=== PATIENT | male | born 1995 | race Caucasian/White ===

== ENCOUNTER 2016-06-27 09:47 | Outpatient (CLI) | payer MEDICAID | END 2016-06-27 09:48 | disposition home or self-care (01) | DX: L70.0 Acne vulgaris (principal); Z79.899 Other long term (current) drug therapy ==

== ENCOUNTER 2016-07-12 11:13 | Outpatient (CLI) | payer MEDICAID | END 2016-07-12 11:14 | disposition home or self-care (01) | DX: R79.9 Abnormal finding of blood chemistry, unspecified (principal); Z79.899 Other long term (current) drug therapy ==

== ENCOUNTER 2016-07-24 13:31 | Outpatient (CLI) | payer MEDICAID | END 2016-07-24 13:32 | disposition home or self-care (01) | DX: L70.0 Acne vulgaris (principal); Z79.899 Other long term (current) drug therapy ==

== ENCOUNTER 2016-08-19 13:52 | Outpatient (CLI) | payer MEDICAID | END 2016-08-19 13:53 | disposition home or self-care (01) | DX: L70.0 Acne vulgaris (principal); Z79.899 Other long term (current) drug therapy ==

== ENCOUNTER 2016-09-04 12:00 | Outpatient (CLI) | payer MEDICAID | END 2016-09-04 12:01 | disposition home or self-care (01) | DX: L70.0 Acne vulgaris (principal); Z79.899 Other long term (current) drug therapy ==

== ENCOUNTER 2016-11-14 09:13 | Outpatient (CLI) | payer MEDICAID ==
[2016-11-14 10:13] LABS: BASOPHILS % (AUTO) 0.2 %; EOSINOPHILS # (AUTO) 0.1 10^3/uL (0.0-0.7); EOSINOPHILS % (AUTO) 1.9 %; HCT - HEMATOCRIT 40.7 % (42.0-52.0); HGB - HEMOGLOBIN 14.2 g/dL (14.0-18.0); LYMPHOCYTES % (AUTO) 31.8 %; MEAN CORPUSCULAR HEMOGLOBIN 28.7 pg (27.0-31.0); MEAN CORPUSCULAR HGB CONC 34.8 g/dL (32.0-36.0); MEAN CORPUSCULAR VOLUME 82.5 fL (80.0-94.0); MEAN PLATELET VOLUME 8.6 fL (7.4-11.4); MONOCYTES # (AUTO) 0.6 10^3/uL (0.0-1.0); MONOCYTES % (AUTO) 9.5 %; NEUTROPHILS # (AUTO) 3.5 10^3/uL (1.5-6.6); NEUTROPHILS % (AUTO) 56.6 %; RED BLOOD COUNT 4.94 10^6/uL (4.70-6.10); RED CELL DISTRIBUTION WIDTH 16.8 % (12.0-15.0); UNCORRECTED WHITE BLOOD COUNT 6.2 x10^3/uL; WHITE BLOOD COUNT 6.2 x10^3/uL (4.8-10.8)
[2016-11-14 10:25] LABS: ALBUMIN/GLOBULIN RATIO 1.4 (1.0-2.2); BILIRUBIN,TOTAL 0.9 mg/dL (0.2-1.0); BUN - BLOOD UREA NITROGEN 13 mg/dL (6-20); CALCIUM 9.8 mg/dL (8.5-10.3); CARBON DIOXIDE - CO2 25 mmol/L (21-32); CHLORIDE 101 mmol/L (101-111); CHOL/HDL RATIO 2.9 (<5.0); CHOLESTEROL 199 mg/dL; CREATININE 0.9 mg/dL (0.6-1.2); GFR - MDRD 106 (>89); GLUCOSE 93 mg/dL (70-100); HDL CHOLESTEROL 68 mg/dL; POTASSIUM 3.7 mmol/L (3.5-5.0); SODIUM 136 mmol/L (135-145); TOTAL PROTEIN 8.5 g/dL (6.7-8.2); TRIGLYCERIDES 30 mg/dL
[2016-11-14 10:46] LABS: LDL CHOLESTEROL,DIRECT 114 mg/dL
== END 2016-11-14 09:14 | disposition home or self-care (01) ==
LOC: LAB 09:13
PROVIDERS: ATTEND Nurse Practitioner Family
DX: E72.03 Lowe's syndrome (principal)
CPT/HCPCS: 36415; 80053; 80061; 82043; 85025

== ENCOUNTER 2017-03-31 13:00 | Outpatient (CLI) | payer MEDICAID ==
[2017-03-31 13:18] LABS: BASOPHILS % (AUTO) 0.3 %; EOSINOPHILS # (AUTO) 0.1 10^3/uL (0.0-0.7); EOSINOPHILS % (AUTO) 1.6 %; HGB - HEMOGLOBIN 14.1 g/dL (14.0-18.0); LYMPHOCYTES # (AUTO) 2.2 10^3/uL (1.5-3.5); LYMPHOCYTES % (AUTO) 41.8 %; MEAN CORPUSCULAR HEMOGLOBIN 28.2 pg (27.0-31.0); MEAN CORPUSCULAR HGB CONC 33.5 g/dL (32.0-36.0); MEAN CORPUSCULAR VOLUME 83.9 fL (80.0-94.0); MEAN PLATELET VOLUME 7.9 fL (7.4-11.4); MONOCYTES # (AUTO) 0.5 10^3/uL (0.0-1.0); MONOCYTES % (AUTO) 10.6 %; NEUTROPHILS # (AUTO) 2.4 10^3/uL (1.5-6.6); NEUTROPHILS % (AUTO) 45.7 %; NUCLEATED RED BLOOD CELLS AUTO 0.1 /100WBC; RED CELL DISTRIBUTION WIDTH 16.1 % (12.0-15.0); UNCORRECTED WHITE BLOOD COUNT 5.2 x10^3/uL; WHITE BLOOD COUNT 5.2 x10^3/uL (4.8-10.8)
[2017-03-31 13:33] LABS: CREATININE 0.9 mg/dL (0.6-1.2); MAGNESIUM 2.2 mg/dL (1.7-2.8); PHOSPHORUS 4.3 mg/dL (2.5-4.6)
[2017-03-31 21:27] LABS: BILIRUBIN,URINE NEGATIVE (NEGATIVE); PH,URINE 7.5 PH (5.0-7.5)
[2017-03-31 21:28] LABS: UA w/ MICROSCOPIC CHARGE YES
[2017-03-31 21:40] LABS: WBC,URINE 0-3 /HPF (0-3)
[2017-03-31 21:41] LABS: UR CULTURE IF IND NOT INDICATED
== END 2017-03-31 13:01 | disposition home or self-care (01) ==
LOC: LAB 13:00
PROVIDERS: ATTEND Internal Medicine
DX: E72.03 Lowe's syndrome (principal)
CPT/HCPCS: 36415; 80069; 81001; 81003; 82043; 82306; 82570; 83735; 85025; 87086

== ENCOUNTER 2017-08-15 08:12 | Outpatient (CLI) | payer MEDICAID ==
[2017-08-15 10:09] LABS: BASOPHILS % (AUTO) 0.5 %; EOSINOPHILS # (AUTO) 0.1 10^3/uL (0.0-0.7); EOSINOPHILS % (AUTO) 1.4 %; HGB - HEMOGLOBIN 13.7 g/dL (14.0-18.0); LYMPHOCYTES # (AUTO) 1.9 10^3/uL (1.5-3.5); MEAN CORPUSCULAR HGB CONC 34.2 g/dL (32.0-36.0); MEAN PLATELET VOLUME 7.8 fL (7.4-11.4); MONOCYTES # (AUTO) 0.5 10^3/uL (0.0-1.0); MONOCYTES % (AUTO) 8.5 %; NEUTROPHILS # (AUTO) 3.7 10^3/uL (1.5-6.6); NEUTROPHILS % (AUTO) 58.6 %; PLT - PLATELET COUNT 111 10^3/uL (130-450); RED BLOOD COUNT 4.91 10^6/uL (4.70-6.10); RED CELL DISTRIBUTION WIDTH 16.5 % (12.0-15.0); WHITE BLOOD COUNT 6.3 x10^3/uL (4.8-10.8)
[2017-08-15 10:20] LABS: ALBUMIN 4.7 g/dL (3.2-5.5); ALBUMIN/GLOBULIN RATIO 1.2 (1.0-2.2); BILIRUBIN,TOTAL 0.8 mg/dL (0.2-1.0); CALCIUM 9.7 mg/dL (8.5-10.3); CREATININE 0.9 mg/dL (0.6-1.2); MAGNESIUM 2.1 mg/dL (1.7-2.8); TOTAL PROTEIN 8.7 g/dL (6.7-8.2)
--- NOTE | 2017-08-15 10:48 | Ultrasound Report ---
RENAL ULTRASOUND: 08/15/2017 CLINICAL INDICATION: Lowe's syndrome. COMPARISON: 07/30/2014. TECHNIQUE: Real-time scanning was performed with scheduling representative static images obtained. FINDINGS: The right kidney measures 10.3 x 5.0 x 3.7 cm. No hydronephrosis is seen. There is a small echogenic focus in a mid pole calyx, suspicious for a nonobstructing calculus measuring approximately 5 mm. No solid renal lesion or perinephric collection is seen. The left kidney measures 11.0 x 4.9 x 3.8 cm. No hydronephrosis, focal renal lesion, or perinephric collection is present. Prevoid, the urinary bladder measures 12.3 x 12.3 x 7.7 cm, yielding a prevoid volume of 685 mL. Postvoid residual is 28 mL No focal bladder lesion is seen. IMPRESSION: LIKELY SMALL NONOBSTRUCTING RIGHT RENAL CALCULUS. OTHERWISE, NORMAL RENAL ULTRASOUND. TD: 08/15/2017 10:48
== END 2017-08-15 08:13 | disposition home or self-care (01) ==
LOC: DI 08:12
PROVIDERS: ATTEND Nurse Practitioner Family
DX: E72.03 Lowe's syndrome (principal)
CPT/HCPCS: 36415; 76770; 80053; 82043; 83735; 85025

== ENCOUNTER 2017-08-16 11:03 | Outpatient (CLI) | payer MEDICAID | END 2017-08-16 11:04 | disposition home or self-care (01) | LOC: LAB 11:03 | PROVIDERS: ATTEND Nurse Practitioner Family | DX: E72.03 Lowe's syndrome (principal) | CPT/HCPCS: 82043 ==

== ENCOUNTER 2018-03-10 09:48 | Outpatient (CLI) | payer MEDICAID ==
[2018-03-10 11:20] LABS: ALBUMIN 4.9 g/dL (3.2-5.5); CALCIUM 10.2 mg/dL (8.5-10.3); PHOSPHORUS 2.6 mg/dL (2.5-4.6)
[2018-03-10 11:40] LABS: CREATININE,URINE 38.7 mg/dL
== END 2018-03-10 09:49 | disposition home or self-care (01) ==
LOC: LAB 09:48
PROVIDERS: ATTEND Nurse Practitioner
DX: M81.0 Age-related osteoporosis without current pathological fracture (principal)
CPT/HCPCS: 36415; 81599; 82040; 82310; 82340; 82570; 84075; 84100; 84105; 84270; 84403

== ENCOUNTER 2018-08-17 15:03 | Outpatient (CLI) | payer MEDICAID ==
[2018-08-17 15:36] LABS: BASOPHILS % (AUTO) 0.5 %; EOSINOPHILS # (AUTO) 0.1 10^3/uL (0.0-0.7); EOSINOPHILS % (AUTO) 1.9 %; HGB - HEMOGLOBIN 13.6 g/dL (14.0-18.0); LYMPHOCYTES # (AUTO) 2.7 10^3/uL (1.5-3.5); LYMPHOCYTES % (AUTO) 43.1 %; MEAN CORPUSCULAR HEMOGLOBIN 28.1 pg (27.0-31.0); MEAN CORPUSCULAR VOLUME 82.6 fL (80.0-94.0); MEAN PLATELET VOLUME 7.8 fL (7.4-11.4); MONOCYTES # (AUTO) 0.6 10^3/uL (0.0-1.0); MONOCYTES % (AUTO) 9.1 %; NEUTROPHILS # (AUTO) 2.9 10^3/uL (1.5-6.6); NEUTROPHILS % (AUTO) 45.4 %; PLT - PLATELET COUNT 101 10^3/uL (130-450); RED BLOOD COUNT 4.85 10^6/uL (4.70-6.10); RED CELL DISTRIBUTION WIDTH 16.7 % (12.0-15.0); WHITE BLOOD COUNT 6.3 x10^3/uL (4.8-10.8)
[2018-08-17 15:44] LABS: CALCIUM 9.5 mg/dL (8.5-10.3)
[2018-08-17 17:03] LABS: BILIRUBIN,URINE NEGATIVE (NEGATIVE); GLUCOSE, URINE (UA) 100 mg/dL (NEGATIVE); KETONES,URINE (UA) NEGATIVE (NEGATIVE); LEUKOCYTE ESTERASE, URINE NEGATIVE (NEGATIVE); NITRITE,URINE NEGATIVE (NEGATIVE); OCCULT BLOOD,URINE NEGATIVE (NEGATIVE); PROTEIN,URINE 100 mg/dL (NEGATIVE); UROBILINOGEN,URINE 0.2 (NORMAL) E.U./dL (NORMAL)
[2018-08-17 17:11] LABS: CLARITY,URINE HAZY (CLEAR)
[2018-08-17 17:25] LABS: AMORPHOUS SEDIMENT,UR Moderate /LPF; BACTERIA,URINE None Seen /HPF (None Seen); RBC,URINE 0-5 /HPF (0-5); SQUAMOUS EPITHELIAL CELL,UR NONE SEEN (<= Few)
[2018-08-17 18:53] LABS: ALBUMIN 4.6 g/dL (3.2-5.5); ALBUMIN/GLOBULIN RATIO 1.1 (1.0-2.2); BILIRUBIN,TOTAL 0.7 mg/dL (0.2-1.0); CREATININE 0.9 mg/dL (0.6-1.2); TOTAL PROTEIN 8.9 g/dL (6.7-8.2)
[2018-08-17 20:25] LABS: CREATININE,URINE 34.5 mg/dL; PROTEIN/CREATININE RATIO,URINE 3.3 (<=0.2)
== END 2018-08-17 15:04 | disposition home or self-care (01) ==
LOC: LAB 15:03
PROVIDERS: ATTEND Internal Medicine
DX: E72.03 Lowe's syndrome (principal)
CPT/HCPCS: 36415; 80053; 81001; 82043; 82306; 82570; 83970; 84156; 85025; 87086

== ENCOUNTER 2018-10-12 14:16 | Outpatient (CLI) | payer MEDICAID ==
[2018-10-12 14:40] LABS: CALCIUM 9.8 mg/dL (8.5-10.3); CREATININE 1.2 mg/dL (0.6-1.2); MAGNESIUM 2.4 mg/dL (1.7-2.8)
[2018-10-12 15:03] LABS: CREATININE,URINE 51.4 mg/dL; PROTEIN/CREATININE RATIO,URINE 2.1 (<=0.2)
== END 2018-10-12 14:17 | disposition home or self-care (01) ==
LOC: LAB 14:16
PROVIDERS: ATTEND Internal Medicine
DX: E72.03 Lowe's syndrome (principal); R80.9 Proteinuria, unspecified
CPT/HCPCS: 36415; 80048; 82570; 83735; 84156